=== PATIENT | female | born 1990 ===

== ENCOUNTER 2021-08-04 08:15 | Outpatient (RCR) | payer BC, SELFPAY ==
[2021-07-19 12:18] VITALS: BMI 25.0
--- NOTE | 2021-07-19 12:41 | PC.ADMIT ---
Patient is a 30 year old single female who lives alone in her apartment who was referred to [facility] by her therapist d/t struggling with increased symptoms of depression and anxiety. 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 Patient reports she works from home and is feeling isolated. She reports she used to go out and do a lot of things by herself such as hiking however has not been able to do this at present d/t symptoms. Patient stated she has suffered from anxiety and depression in her life however since COV her symptoms increased along with an increase in Marijuana use to cope. Patient also identifies break up with a very close friend in May contributing to her symptoms. Patient denied this to be a romantic relationship. Patient stated she is struggling with much anxiety and is having difficulty attending to self care. Reports she has not seen her PCP in a very long time and is afraid to as she has not been taking care of herself and has fears surrounding this. Patient denied any symptoms medically. Patient reports low self esteem as well. She appears motivated to learning healthier ways to cope with her feelings. Patient is alert and oriented x4. Presents with depressed mood, tearful affect. Appears motivated for treatment. Medications reconciled with patient and patient's pharmacy. Patient reports she is taking medications as prescribed. Emailed patient a copy of her safety plan.
--- NOTE | 2021-07-19 14:10 | PC.NURSE ---
I left a message with the clients therapist Asia Newton re client started PHP
--- NOTE | 2021-07-19 16:17 | P.HPPSP_ITS ---
HPI Date of Service: 07/19/21 Chief Complaint: OCD, depression, axiety HPI Narrative: Nara is a 30 y.o. female who was referred to [facility] by her therapist Asia Orellana due to worsening depression and anxiety. Pt identifies precipitating factors as the pandemic and having to be more isolated, remote work. Pt reports avolition, low energy, hypersomnia, and poor appetite.? I evaluated the pt this morning and upon interview she reports ?I dont think theyre working great? for her medications and she has been on/off celexa for years, went back on it during the pandemic. Noticed difficulty with feeling ?isolated at home? and now that the pandemic is in remission, she is again having difficulty adjusting. She also had a friend break up at the beginning of last year, had been friends for 14 years and says her friend was ?cruel on the way out.? Says she does not like that it ?ruins sex drive,? also still feels depressed. Says she doesnt think lamictal made a difference, ?maybe it?s somewhat stabilizing.? Says her sleep quality is poor, as she feels ?really tired in the morning? and her energy is low. Has difficulty with chores such as dishes. Alleviating factors include getting out of the house. Pt describes a long hx of low level depression, persistent dysthymia. Says she is always anxious. Notices she has a low appetite and nausea in the morning and then overeats later in the day. Mood is ?tired.? Denies SI/SIB. Says she feels safe.? Current med regimen: Celexa 20 mg, xanax 0.5 mg QD (gets 5 tabs, rarely uses, fills once a year), lamictal 300 mg QAM. Past Psychiatric History: -Has OP psychiatrist, Lucinda Fuentes and therapist, Asia Orellana -Onset of depression and anxiety prior to high school -Hx of SIB, cutting in high school 1x. -Denies hx of IPLOC, PHP admissions -Past meds: zoloft (?didnt work out well?), wellbutrin (?doesnt work for me,? worsened anxiety), trileptal (helped, took with celexa). Medical Evaluation Reviewed: Yes [facility] Medical History (Updated 07/26/21 @ 21:23 by Selene Batres NP) Chronic Moses-Soriano virus (EBV) infection syndrome Social History: -Pt has a Bachelor's degree in linguistics through [employer]. Works as an multimedia editor. Lives alone and works from home. Substance History: -Cannabis: onset age 17, daily use, 3 bowls -Hallucinogens: onset in her 20's, tried them a few times -ETOH: onset in College, Occasional/ Social use Trauma History: -Per chart, pt's father when she was age 8 Diagnostics Vital Signs (24Hr): BMI result Body Mass Index 25.0 Meds/Allergies Allergies Allergies Allergy/AdvReac Type Severity Reaction Status Date / Time No Known Allergies Allergy Verified 07/19/21 08:58 Mental Status Exam Mental Status Exam Narrative: A&O. Well groomed, good hygiene, normal body habitus. Good eye contact, attentive. No Tics or Tremors. No abnormal involuntary movements. Calm, cooperative, engaged. Non-pressured speech, spontaneous with regular rate and rhythm, normal volume and prosody. No prolonged speech latency or dysarthria. Mood is ?depressed,? affect is euthymic. Denies SI/SIB/HI upon inquiry. Denies A/VH or delusional thought content. Thoughts are coherent, organized. No known cognitive or memory impairment. Insight/ Judgment fair and adequate. Assessment & Plan Assessment & Plan (1) MDD (major depressive disorder), recurrent episode, moderate: Status: Acute Code(s): F33.1 - Major depressive disorder, recurrent, moderate (2) WALE (generalized anxiety disorder): Status: Acute Code(s): F41.1 - Generalized anxiety disorder Plan Nara is a 30 y.o. female who was referred to [facility] by her therapist Asia Orellana due to worsening depression and anxiety. Pt identifies precipitating factors as the pandemic and having to be more isolated, remote work. Pt reports avolition, low energy, hypersomnia, and poor appetite.? Plan: -Discussed trial of prozac 20 mg, as pt has only had one SSRI trial on celexa and reports it was initially helpful but has been on/off it and no longer thinks it helps. Also does not like sexual SE. Reviewed risks and benefits on prozac.? Monitor medication for benefit Discharge upon stabilization Obtain info from collateral contacts as needed Follow up per program protocol Patient educated on: medication risk/benefits Certification I certify that partial hospital treatment is medically necessary due to the symptoms and problems resulting from the patient's mental illness and the failure to treat the patient at the partial hospital level of care would likely result in the patient requiring inpatient psychiatric care which could not be pr evented at a less intensive level of care.
--- NOTE | 2021-07-22 07:25 | PC.NURSE ---
Case opened in treatment team
--- NOTE | 2021-07-27 10:59 | P.PNPSP_ITS ---
Subjective Subjective Date of Service: 07/27/21 Reason For Visit: OCD, depression, axiety Guardianship: No Medical Problems Affecting Mental Status: No Interim History: Describes mood as ?feeling more even ?. Continues with some anxiety, picking behaviors such as ?doing my cheeks ? related to anxiety. States feels less anxious overall. Feels Prozac is working well, no side effects. Denies SI/HI, SIB. Medication Compliance: Yes Side effects from medications: No Attending Groups: Yes Review of Systems Acute medical concerns: No Medical Review of Systems: unchanged Review of Systems Review of Systems Yes all other systems are reviewed and are negative Constitutional: Reports no additional constitutional complaints Mental Status Exam Mental Status Exam Narrative: NAD, fully engaged and participating during encounter. Well groomed, dressed appropriately. Speech regular rate and rhythm, full prosody, normal volume. Describes mood as ?more even ?. Continues with some anxiety, picking behaviors. Affect mood congruent, brightens easily. Thought process linear, goal directed. No loosening of associations noted. No SI/HI/SIB. No hallucinations, paranoia, delusions noted. Fully alert and oriented x4. Memory and concentration/attention appropriate. Abstract reasoning intact. Fund of knowledge adequate. Continues with fair insight and judgment, continues to improve. Patient Orientation: Person, Place, Time and Situation Level of Consciousness: Awake, Appropriate and Alert Diagnostics Vital Signs (24Hr): BMI result Body Mass Index 25.0 Assessment & Plan Assessment & Plan (1) MDD (major depressive disorder), recurrent episode, moderate: Status: Acute Code(s): F33.1 - Major depressive disorder, recurrent, moderate Assessment and Plan: Describes mood as ?feeling more even ?. Continues with some anxiety, picking behaviors such as ?chewing my cheeks ? related to anxiety. She wears a mouth guard at night, and finds this helpful to decrease the chewing. States that at 1 time as a child she was diagnosed with obsessive-compulsive disorder, and has always had anxiety related behaviors such as this. States feels less depressed and anxious overall, noticing and an improvement since she has begun PHP. Feels Prozac is working well, no side effects. Did not experiencing any type of withdrawals from stopping the Celexa. Continues with Lamictal. Request script for Prozac and Lamictal. Denies SI/HI, SIB. (2) WALE (generalized anxiety disorder): Status: Acute Code(s): F41.1 - Generalized anxiety disorder Plan 1. Scripts sent for Lamictal 150 mg b.i., and Prozac 20 mg daily, 30 day supply for each. 2. Continue with current [facility] plan of care. 3. Follow-up as per protocol. Patient educated on: diagnosis, medication risk/benefits and therapeutic strategies Informed Consent: understands Reason for contiued partial hosp. stay Substantial Risk for: inability to function and med/psych decompensation Certification I certify that partial hospital treatment is medically necessary due to the symptoms and problems resulting from the patient's mental illness and the failure to treat the patient at the partial hospital level of care would likely result in the patient requiring inpatient psychiatric care which could not be prevented at a less intensive level of care. I spent minutes with the patient and/or on the patient floor today, greater than?50% of which was spent counseling/coordinating care. Discharge Plan Discharge Attending provider: Kory Gan Additional Instructions: Patient has a PCP appointment on September 09, 2021 at 10:20 with Raquel Martinez at [facility] Internal medicine #[phone]. Medications: New fluoxetine 20 mg capsule 20 mg PO DAILY Qty: 30 0RF lamotrigine 150 mg tablet 150 mg PO BID Qty: 60 0RF Discontinued lamotrigine 150 mg Tablet 300 mg PO DAILY 0RF No Action citalopram [Celexa] 20 mg Tablet 20 mg PO DAILY 0RF Stand Alone Forms: Patient Portal Discharge page Telehealth Telehealth Location of provider rendering services: practice address Location of patient: address on file Patient Identification confirmed using: Name, : Yes Telehealth method: video Patient verbally consented to treatment: Yes Patient verbally consented to billing insurance company: Yes Patient informed of any privacy concerns related to visit: Yes Minutes spent on Phone/Video with Pt.: 15
--- NOTE | 2021-08-04 12:07 | P.PNPSP_ITS ---
Subjective Subjective Date of Service: 08/04/21 Reason For Visit: OCD, depression, axiety Guardianship: No Medical Problems Affecting Mental Status: No Interim History: Overall feels improved, describes mood as ?good ?. Feels ready for leaving program. No SI/HI reported. Reports overall improvement with anxiety and depression, however the symptoms still present. Requesting increase of Prozac dose. Medication Compliance: Yes Side effects from medications: No Attending Groups: Yes Review of Systems Acute medical concerns: No Medical Review of Systems: unchanged Review of Systems Review of Systems Yes all other systems are reviewed and are negative Constitutional: Reports no additional constitutional complaints Mental Status Exam Mental Status Exam Narrative: NAD, fully engaged and participating during encounter. Well groomed, dressed appropriately. Speech regular rate and rhythm, full prosody, normal volume. Describes mood as good . Reports still some depression/anxiety, but improved. Affect mood congruent, brightens easily. Thought process linear, goal directed. No loosening of associations noted. No SI/HI/SIB. No hallucinations, paranoia, delusions noted. Fully alert and oriented x4. Memory and concentration/attention appropriate. Abstract reasoning intact. Fund of knowledge adequate. Insight and judgment intact, good. No abnormal movements/tics noted, ambulation not observed. Patient Orientation: Person, Place, Time and Situation Level of Consciousness: Awake, Appropriate and Alert Diagnostics Vital Signs (24Hr): BMI result Body Mass Index 25.0 Assessment & Plan Assessment & Plan (1) WALE (generalized anxiety disorder): Status: Acute Code(s): F41.1 - Generalized anxiety disorder Assessment and Plan: Overall feels improved, describes mood as ?good ?. Feels ready for leaving program. No SI/HI reported. No safety concerns. Reports overall improvement with anxiety and depression, however the symptoms still present. Requesting increase of Prozac dose. Reports groups have been extremely helpful, has found program has been impetus for change. Expressed hope for future. (2) MDD (major depressive disorder), recurrent episode, moderate: Status: Acute Code(s): F33.1 - Major depressive disorder, recurrent, moderate Plan 1. Increase fluoxetine to 30 mg daily. 2. Script for lamotrigine 150 mg b.i.d. recent, as pharmacy had reported it was not received. 3. Patient appears stable for discharge from [facility] at this time. Patient educated on: diagnosis, medication risk/benefits, substance abuse (marijuana use, does not identify as an abuse/addiction) and therapeutic strategies Informed Consent: understands Reason for contiued partial hosp. stay Substantial Risk for: stable for discharge Certification I certify that partial hospital treatment is medically necessary due to the symptoms and problems resulting from the patient's mental illness and the failure to treat the patient at the partial hospital level of care would likely result in the patient requiring inpatient psychiatric care which could not be prevented at a less intensive level of care. I spent minutes with the patient and/or on the patient floor today, greater than?50% of which was spent counseling/coordinating care. Discharge Plan Discharge Attending provider: Kory Gan Additional Instructions: Patient has a PCP appointment on September 09, 2021 at 10:20 with Raquel Martinez at [facility] Internal medicine #[phone]. Medications: New fluoxetine 20 mg capsule 20 mg PO DAILY Qty: 30 0RF fluoxetine 10 mg capsule 10 mg PO DAILY Qty: 30 0RF Rx Instructions: Take 10mg fluoxetine with 20mg fluoxetine, for total daily dose of 30mg. lamotrigine 150 mg tablet 150 mg PO BID Qty: 60 0RF Discontinued lamotrigine 150 mg Tablet 300 mg PO DAILY 0RF No Action citalopram [Celexa] 20 mg Tablet 20 mg PO DAILY 0RF Stand Alone Forms: Patient Portal Discharge page Telehealth Telehealth Location of provider rendering services: practice address Location of patient: address on file Patient Identification confirmed using: Name, : Yes Telehealth method: video Patient verbally consented to treatment: Yes Patient verbally consented to billing insurance company: Yes Patient informed of any privacy concerns related to visit: Yes Minutes spent on Phone/Video with Pt.: 15
--- NOTE | 2021-08-04 13:03 | PC.NURSE ---
I left a message for Asia Orellana [facility] re client's discharge and the progress she made in the program.
--- NOTE | 2021-08-05 10:59 | PC.NURSE ---
Patient discharged from [facility] on 08/04/21. Patient reported feeling ready for discharge. Denied SI, No safety issues. Reviewed patient medications with patient. Patient reports taking medications as prescribed. Denied any side effects.
== END 2021-08-04 23:59 | disposition home or self-care (01) ==
LOC: HO.PHPA 08:15
PROVIDERS: Visit Provider Psychiatry & Neurology Psychiatry
DX: F33.1 Major depressive disorder, recurrent, moderate (principal); F41.1 Generalized anxiety disorder; Z79.899 Other long term (current) drug therapy
CPT/HCPCS: 90791; 90853